=== PATIENT | female | born 1990 | race African-American/Black ===

== ENCOUNTER → 2017-02-25 | Outpatient (CLI) | payer OTHER ==
[~2017-02-25] MED LIST: CALNTAB; FERR325T PO; IBUP-232 PO; LABE100T2 PO; ONDA4TAB7 PO; PERI8.6T PO; SENN1TAB PO
[2017-02-25 12:59] LABS: AUTOMATED NEUTROPHIL # 4.8 TH/MM3 (1.8-7.7); BASOPHIL % 0.3 % (0.0-2.0); EOSINOPHIL # 0.1 TH/MM3 (0-0.4); EOSINOPHIL % 0.8 % (0.0-4.0); HEMATOCRIT 34.6 % (35.0-46.0); HEMO FLAGS DIFF FINAL; LYMPH % 30.5 % (9.0-44.0); LYMPHOCYTE # 2.5 TH/MM3 (1.0-4.8); MEAN CELL VOLUME 83.1 FL (80.0-100.0); MEAN CORPUSCULAR HEMOGLOBIN 27.7 PG (27.0-34.0); MEAN CORPUSCULAR HGB CONC 33.3 % (32.0-36.0); NEUT % 57.4 % (16.0-70.0); PLATELET COUNT 191 TH/MM3 (150-450); RED BLOOD COUNT 4.16 MIL/MM3 (4.00-5.30); RED CELL DISTRIBUTION WIDTH 14.5 % (11.6-17.2); WHITE BLOOD COUNT 8.3 TH/MM3 (4.0-11.0)
[2017-02-25 13:20] LABS: SICKLE CELL SCREEN NEG (NEG)
[2017-02-25 13:53] LABS: RUBELLA IGG ANTIBODY 18.4 IU/mL (10.0-500.0); RUBELLA STATUS IMMUNE (IMMUNE)
[2017-02-28 13:05] LABS: HEPATITIS B SURFACE ANTIBODY 0 mIU/mL
[2017-02-28 14:10] LABS: RAPID PLASMA REAGIN SCREEN NON-REACTIVE (NON-REACTVE)
== END ==
LOC: CLAB 11:05
PROVIDERS: ATTEND Family Medicine
DX: O09.30 Supervision of pregnancy with insufficient antenatal care, unspecified trimester (principal); Z83.2 Family history of diseases of the blood and blood-forming organs and certain disorders involving the immune mechanism
CPT/HCPCS: 36415; 82951; 83020; 84443; 85025; 85660; 86317; 86592; 86703; 86762; 86787; 86850; 86900; 86901; 87340

== ENCOUNTER → 2017-03-24 | Outpatient (CLI) | payer OTHER ==
[2017-03-24 17:38] LABS: URINE TOTAL PROTEIN TIMED 7.7 MG/DL
== END ==
LOC: CLAB 14:22
PROVIDERS: ATTEND Family Medicine
DX: R80.9 Proteinuria, unspecified (principal); R60.0 Localized edema
CPT/HCPCS: 84157

== ENCOUNTER 2017-03-29 14:13 | Inpatient (IN) | payer MEDICAID ==
[2017-03-29] VITALS (48 sets, daily range): BP systolic 122–164; BP diastolic 74–99; PULSE 68–114; RESP 18; TEMP 98.1–98.3
[~2017-03-29 14:13] MED LIST changes: -IBUP-232 PO; -LABE100T2 PO; -ONDA4TAB7 PO; -SENN1TAB PO
--- NOTE | 2017-03-29 14:52 | HHI.HP ---
HPI Chief Complaint IOL for low GRACE Date Seen: Mar 29, 2017 Time Seen: 14:51 Travel History International Travel<30 Days: No Contact w/Intl Traveler<30Days: No History of Present Illness HPI Patient is a 26 year old at 40 and 6/7 weeks by second-trimester US who presents for induction of labor due to oligohydramnios. OB care initially in [facility] beginning in July 2016, and was transferred to Dr. Heidy Malave upon arrival in [facility] at 30 weeks. She was seen in office 03/28/17 without complaint and exam showing no signs of labor. OB diagnostic US today revealed low GRACE of 6.2cm and MFM physician recommended induction of labor. Of note, patient wanted to go to 42 weeks with the , and NST was ordered for surveillance. She denies leakage of fluid, vaginal bleeding, and contractions. She feels baby moving regularly. She denies TUCKER/N/V/D/fever/sick contacts/SOB/calf pain/ dizziness/seeing spots. Para: 1 : 5 Last Menstrual Period: Jul 06, 2017 History Past Medical History Medical History: Denies Significant Hx Obstetric History Obstetric History G1: 2006 6 week elective G2: 2009 40 week of a male , 8 lbs. 3 oz. G3: 2011, 4 week elective G4: 2012, 4 week elective G5: current Family History Narrative Family History Mother with hypertension, arthritis Social History Alcohol Use: No Tobacco Use: No Substance Abuse: No Allergies-Medications (Allergen,Severity, Reaction): Coded Allergies: No Known Allergies (Unverified , 03/28/17) Home Meds Active Scripts Sennosides-Docusate Sodium (Evi-Colace)8.6-50 Mg Tab1 Tab PO DAILY PRN ( CONSTIPATION) #30 TAB Ref 0 Prov:Heidy Malave MD 03/01/17 Ferrous Sulfate 325 Mg [id number] Mg PO DAILY #30 TAB Ref 4 Prov:Heidy Malave MD 03/01/17 Reported Medications Vitamin (Calna)1 Tab Tab 02/17/17 Review of Systems Except as stated in HPI: all other systems reviewed are Neg Physical Exam Narrative GENERAL: Well-nourished, well-developed female. SKIN: Warm and dry. No rashes. HEAD: Normocephalic and atraumatic. EYES: No scleral icterus. No injection or drainage. ENT: No nasal drainage noted. Mucous membranes pink. Airway patent. NECK: Supple, trachea midline. No JVD. CARDIOVASCULAR: Regular rate and rhythm without murmurs, gallops, or rubs. RESPIRATORY: Breath sounds equal bilaterally. No accessory muscle use. ABDOMEN/GI: Abdomen soft, non-tender, bowel sounds present, no rebound, no guarding Gravid to approx 40 weeks size GENITOURINARY: External Genitalia: intact and normal in appearance Cervix: 1/30%/-2, soft Presentation: vertex Membranes: intact Uterine Contractions: intermittent contractions q 10-15min FHT's: Category: 1 Baseline: 135 Reactive: yes to 150 Variability: mod Decels: absent EXTREMITIES: No cyanosis or edema. BACK: Nontender without obvious deformity. No CVA tenderness. NEUROLOGICAL: Awake and alert. Motor and sensory grossly within normal limits. Five out of 5 muscle strength in all muscle groups. Normal speech. Data Data Vital Signs Reviewed: Yes (BP 139/83, pulse 82, respirations 18, temperature 98.4F) Assessment/Plan Problem List: (1) Post term over 40 weeks Assessment and Plan 26-year-old at 40 and 6/7 weeks with EDC 03/23 who presents for induction of labor due to oligohydramnios and postdates gestation 1. Intrauterine -at 40 and 6/7 week gestation -PNC with Dr. Heidy Malave ([facility] up to 30+weeks) -GBS negative -Continue routine care -Category 1 tracing -CTX intermittent at this time -Labor augmentation as indicated Patient discussed with Dr. Conrad, Dr. Malave Patient seen and discussed with Dr. Nguyen Discharge Planning Likely 1-2 days after vaginal delivery Norma Alexander MD R1 Mar 29, 2017 14:51
[2017-03-29] MEDS ORDERED: LACTATED RINGER'S 1000 ML INJ 1,000 ML IV PRN (15:01)
[2017-03-29] MEDS ORDERED: ONDANSETRON HCL 4 MG/2 ML VIAL IV PRN (15:15)
[2017-03-29] MEDS ORDERED: SODIUM CHLORID 0.9% 500 ML INJ 500 ML IV PRN (15:15)
[2017-03-29] MEDS ORDERED: CITRIC ACID-SODIUM CITRATE LIQ 30 ML UDC PO SCH (15:15)
[2017-03-29] MEDS ORDERED: LIDOCAINE HCL 1% 50 ML VIAL INFIL PRN (15:15)
[2017-03-29] MEDS ORDERED: MINERAL OIL 10 ML VIAL TOPICAL PRN (15:15)
[2017-03-29] MEDS ORDERED: LIDOCAINE HCL 1% 50 ML VIAL I-DERMAL PRN (15:15)
[2017-03-29] MEDS ORDERED: OXYTOCIN 30 UNITS-500ML PREMIX 500 ML IV ONE (15:15)
[2017-03-29] MEDS ORDERED: SODIUM CHLOR 0.9% 1000 ML INJ 1,000 ML IV PRN (15:21)
[2017-03-29 15:25] LABS: AUTOMATED NEUTROPHIL # 3.3 TH/MM3 (1.8-7.7); BASOPHIL % 0.4 % (0.0-2.0); EOSINOPHIL # 0.1 TH/MM3 (0-0.4); EOSINOPHIL % 0.9 % (0.0-4.0); HEMATOCRIT 34.4 % (35.0-46.0); LYMPH % 41.3 % (9.0-44.0); LYMPHOCYTE # 2.9 TH/MM3 (1.0-4.8); MEAN CELL VOLUME 83.3 FL (80.0-100.0); MEAN CORPUSCULAR HEMOGLOBIN 28.1 PG (27.0-34.0); MEAN CORPUSCULAR HGB CONC 33.7 % (32.0-36.0); MONO % 11.3 % (0.0-8.0); NEUT % 46.1 % (16.0-70.0); PLATELET COUNT 147 TH/MM3 (150-450); RED BLOOD COUNT 4.13 MIL/MM3 (4.00-5.30); RED CELL DISTRIBUTION WIDTH 16.8 % (11.6-17.2); WHITE BLOOD COUNT 7.1 TH/MM3 (4.0-11.0)
[2017-03-29 15:26] LABS: BLOOD, URINE NEG (NEG); GLUCOSE,URINE NEG (NEG); HEMO FLAGS DIFF FINAL; KETONE, URINE NEG (NEG); MUCUS URINE FEW /lpf (OCC); NITRITE,URINE NEG (NEG); PH, URINE 5.5 (5.0-8.5); SQUAMOUS EPITHELIAL CELL URINE 3 /hpf (0-5); URINE COLOR YELLOW (YELLW/STRAW)
[2017-03-29] MEDS ORDERED: DINOPROSTONE 10 MG VAG INSERT VAGINAL ONE (15:30)
[2017-03-29] MEDS ORDERED: SODIUM CHLORIDE 0.9% FLUSH 10 ML FLUSH IV FLUSH PRN (15:30)
[2017-03-29 15:32] LABS: COMMENT (UR) CULT NOT INDICATED; CULTURE IF INDICATED CULT NOT INDICATED
[2017-03-29] MEDS: LACTATED RINGER'S 1000 ML INJ 1,000 ML IV SCH ×2 (15:56→20:15)
--- NOTE | 2017-03-29 16:08 | HHI.HP ---
History & Physical H&P OB attending note She is 26-year-old black female now at 40 weeks 6 days referred from OB diagnostics for oligohydramnios. GRACE was 6, and the service recommended induction of labor. She has no complaints or problems. heart rate tracing is reactive and she is jessica irregularly. ob history significant for 3 early losses, Exam was done by the family medicine international freight forwarder and agree with the results Patient's borderline oligohydramnios at 40 weeks 6 days plan admission for labor induction after cervical ripening with Cervidil Chaim Conrad II, MD Mar 29, 2017 16:08
[2017-03-29] MEDS ORDERED: hydrOXYzine HCL 50 MG/ML VIAL IM ONE (17:15)
[2017-03-29] MEDS ORDERED: TERBUTALINE INJ 1 MG/ML AMP SQ PRN (17:15)
--- NOTE | 2017-03-29 19:12 | PD.LABORPN ---
Subjective Subjective CTXs q 2 min painful, FHR reactive cx 2-3 /60/-3 /vtx which is a change from admission. Plan to pull cervidil now and have her CTX on her own , and if the CTXs space out will begin pitocin and or AROM await cx change and vag delivery Objective Vital Signs Vital Signs Date Time Temp Pulse Resp B/P Pulse Ox O2 Delivery O2 Flow Rate FiO2 03/29/17 18:36 18 03/29/17 18:35 97 138/87 03/29/17 17:19 95 134/86 03/29/17 17:19 18 Objective Pelvic Exam: Cervix: [-] Dilatation: [-] Effacement: [-] Station: [-] Presentation: [-] Membranes: [intact or ruptured] Uterine Contractions: [-] FHT's: Category: [-] Baseline: [-] Reactive: [-] Variability: [-] Decels: [-] Assessment/Plan Problem List: (1) Post term over 40 weeks Chaim Conrad II, MD Mar 29, 2017 19:11
[2017-03-29] MEDS ORDERED: fentaNYL 2MCG-BUPIV 0.125% INJ 100 ML ONE (20:54)
[2017-03-29] MEDS ORDERED: SODIUM CHLORIDE 0.9% FLUSH 10 ML FLUSH IV FLUSH SCH (21:00)
[2017-03-29] MEDS ORDERED: ePHEDrine/NS 25 MG/5 ML SYR IV PRN (21:45)
[2017-03-29] MEDS ORDERED: DO NOT ADMINISTER ANTICOAGULANTS PRN (21:45)
[2017-03-29] MEDS ORDERED: NO SYSTEM NARCOTICS PRN (21:45)
[2017-03-29] MEDS ORDERED: fentaNYL 2MCG-BUPIV 0.125% 100 ML EPIDURAL SCH (21:45)
[2017-03-30] VITALS (62 sets, daily range): BP systolic 123–175; BP diastolic 76–107; PULSE 67–155; RESP 16–20; TEMP 98.2–98.9; O2SAT 99
[2017-03-30] MEDS: LACTATED RINGER'S 1000 ML INJ 1,000 ML IV SCH (03:28)
--- NOTE | 2017-03-30 03:29 | PD.LABORPN ---
Subjective Subjective Pt doing well but started feeling contractions on epidural. Pain level 3/10. Objective Vital Signs Vital Signs Date Time Temp Pulse Resp B/P Pulse Ox O2 Delivery O2 Flow Rate FiO2 03/30/17 03:21 98.2 03/30/17 03:15 74 03/30/17 03:00 84 124/83 03/30/17 03:00 81 03/30/17 02:46 86 141/88 03/30/17 02:45 99 18 03/30/17 02:40 89 03/30/17 02:35 93 03/30/17 02:30 84 141/92 03/30/17 02:30 87 03/30/17 02:15 97 03/30/17 02:15 97 136/92 03/30/17 02:13 18 03/30/17 02:00 94 123/87 03/30/17 02:00 96 03/30/17 01:55 93 03/30/17 01:50 101 03/30/17 01:45 95 126/90 03/30/17 01:45 105 03/30/17 01:30 89 125/91 03/30/17 01:30 104 03/30/17 01:15 92 123/94 03/30/17 01:15 102 03/30/17 01:15 18 03/30/17 01:14 92 134/92 03/30/17 01:10 94 03/30/17 01:05 104 03/30/17 01:00 86 03/30/17 01:00 90 136/97 03/30/17 00:45 96 135/89 03/30/17 00:45 94 03/30/17 00:31 67 142/76 03/30/17 00:30 75 18 03/30/17 00:25 76 03/30/17 00:20 73 03/30/17 00:15 76 141/83 03/30/17 00:15 80 03/30/17 00:10 77 03/30/17 00:05 73 03/30/17 00:00 80 136/82 03/30/17 00:00 80 03/29/17 23:55 81 03/29/17 23:50 77 03/29/17 23:45 79 03/29/17 23:45 80 130/78 03/29/17 23:40 76 03/29/17 23:35 78 03/29/17 23:31 76 128/81 03/29/17 23:30 75 03/29/17 23:16 78 136/86 03/29/17 23:15 81 03/29/17 23:08 98.3 18 03/29/17 23:05 72 03/29/17 23:01 72 145/80 03/29/17 23:00 69 03/29/17 22:50 72 03/29/17 22:46 68 140/84 03/29/17 22:45 70 03/29/17 22:40 71 03/29/17 22:35 73 03/29/17 22:30 74 03/29/17 22:30 78 134/77 03/29/17 22:25 75 03/29/17 22:20 72 03/29/17 22:15 71 135/81 03/29/17 22:15 72 03/29/17 22:10 75 03/29/17 22:05 73 03/29/17 22:01 71 146/84 03/29/17 22:00 75 03/29/17 21:46 80 137/94 03/29/17 21:45 77 03/29/17 21:41 18 03/29/17 21:40 83 03/29/17 21:35 79 03/29/17 21:30 90 142/88 03/29/17 21:30 79 03/29/17 21:25 81 03/29/17 21:20 79 03/29/17 21:15 88 133/74 03/29/17 21:11 99 122/77 03/29/17 21:10 100 03/29/17 21:06 76 142/80 03/29/17 21:05 77 03/29/17 21:00 107 03/29/17 21:00 114 164/99 03/29/17 20:56 105 137/77 03/29/17 20:55 97 03/29/17 20:54 92 150/96 Objective Pelvic Exam: Cervix: [-] Dilatation: [-] Effacement: [-] Station: [-] Presentation: [-] Membranes: [intact or ruptured] Uterine Contractions: [-] FHT's: Category: II Baseline: 125 Reactive: Yes, up to 145 Variability: Moderate Decels: variable Assessment/Plan Problem List: (1) Post term over 40 weeks Assessment and Plan 26 , GBS negative -Per nurse's vaginal exam: 6/70%/-2 -Doing well overall -Category II tracing -On epidural -Not ruptured -Continue routine antepartum care -Expect vaginal delivery JoseoLorena MD R1 Mar 30, 2017 03:29
[2017-03-30] MEDS ORDERED: BUPIVACAINE HCL PF 0.25% 10 ML VIAL ONE (05:53)
[2017-03-30] MEDS ORDERED: LIDOCAINE HCL 1.5% PF SOLN 20 ML AMP ONE (05:53)
[2017-03-30] MEDS ORDERED: OXYTOCIN 30 UNITS-500ML PREMIX 500 ML ONE (06:37)
--- NOTE | 2017-03-30 06:53 | PD.OB.DELI ---
Delivery Date: Mar 30, 2017 Anesthesia: Epidural Episiotomy: None Vaginal Delivery: Normal, Spontaneous Presentation: Occiput anterior Nuchal Cord: None Delayed cord clamping (45 sec): Yes : Female, Single One Minute : 7 Five Minute : 9 Weight: 9lb 0.3 oz Placenta: Spontaneous delivery, Intact, 3 vessel cord Laceration: Perineal laceration, 2 deg Repair: Chromic running Additional Information EBL 200 cc Delivery performed by Dr. Malave and Heidy Berger MD Mar 30, 2017 06:53
[2017-03-30] MEDS ORDERED: ZOLPIDEM TARTRATE 5 MG TAB PO PRN (07:00)
[2017-03-30] MEDS ORDERED: SODIUM CHLORIDE 0.9% FLUSH 10 ML FLUSH IV FLUSH PRN (07:00)
[2017-03-30] MEDS ORDERED: WITCH HAZEL 50%/GLYCERIN 12.5% 40 PAD JAR TOPICAL PRN (07:00)
[2017-03-30] MEDS ORDERED: ALUMINUM/MAGNESIUM/SIMETH 30 ML CUP PO PRN (07:00)
[2017-03-30] MEDS ORDERED: DOCUSATE SODIUM 50 MG/SENNA 8.6 MG TAB PO PRN (07:00)
[2017-03-30] MEDS ORDERED: ONDANSETRON ODT 4 MG TAB PO PRN (07:00)
[2017-03-30] MEDS ORDERED: BENZOCAINE 20% TOPICAL SPRAY 60 ML CAN TOPICAL PRN (07:00)
[2017-03-30] MEDS ORDERED: OXYTOCIN 10 UNIT/ML AMP IM ONE (07:00)
[2017-03-30] MEDS: IBUPROFEN 600 MG TAB PO PRN ×3 (08:20→21:50)
[2017-03-30] MEDS: ACETAMINOPHEN 325 MG TAB PO PRN ×2 (13:51→19:11)
[2017-03-30] MEDS ORDERED: MEASLES, MUMPS, RUBELLA VACCINE 0.5 ML VIAL SQ ONE (16:00)
[2017-03-30] MEDS ORDERED: DIPHTH/TETANUS/ACEL PERTUSSIS (BOOSTER) 0.5 ML VIAL/PFS IM ONE (16:00)
[2017-03-31] MEDS: IBUPROFEN 600 MG TAB PO PRN ×3 (03:49→17:57)
[2017-03-31] MEDS: ACETAMINOPHEN 325 MG TAB PO PRN ×3 (03:49→17:57)
[2017-03-31] MEDS: LACTATED RINGER'S 1000 ML INJ 1,000 ML IV SCH ×2 (07:01→15:01)
[2017-03-31 08:05] VITALS: BP 143/88; PULSE 68; RESP 20; TEMP 98.1
--- NOTE | 2017-03-31 08:21 | HHI.OB ---
Subjective Post Day: 1 Remarks day # 1. AFVSS overnight. Decreased lochia. Denies dysuria. No breast tenderness. She is feeding the baby via breast. Appetite good. No nausea or vomiting. Ambulating well. Denies calf pain or shortness of breath. Otherwise, she is doing well this morning and has no other concerns. (Norma Alexander MD R1) Objective Vitals/I&O Vital Signs Date Time Temp Pulse Resp B/P Pulse Ox O2 Delivery O2 Flow Rate FiO2 03/30/17 20:00 98.2 146/95 03/30/17 20:00 98.2 73 20 99 03/30/17 09:45 72 147/89 03/30/17 09:45 98.9 16 Objective Remarks GENERAL: Well-nourished, well-developed female in no apparent distress. CARDIOVASCULAR: Regular rate and rhythm without murmurs, gallops, or rubs. RESPIRATORY: Breath sounds equal bilaterally. No accessory muscle use. Lungs clear to auscultation bilaterally without crackles or wheezes. ABDOMEN/GI: Abdomen soft, non-tender. Normal bowel sounds. Fundus: Firm, non-tender at umbilicus. GENITOURINARY: Light to moderate bleeding. EXTREMITIES: No cyanosis or edema, non-tender, without signs of DVT. Medications and IVs Current Medications Medications (Trade) Dose Ordered Sig/Michelle Route Start Time Stop Time Status Last Admin Lactated Ringer's 1,000 ml @ 125 mls/hr Q8H IV 03/29/17 15:01 03/30/17 03:28 Lactated Ringer's 1,000 ml @ 3,000 mls/hr Q20M PRN IV 03/29/17 15:01 (NS 1000 ml Inj) 1,000 ml @ 100 mls/hr Q10H PRN IV 03/29/17 15:21 (fentaNYL INJ) 50 mcg Q1H PRN IV PUSH 03/29/17 15:15 (fentaNYL INJ) 100 mcg Q1H PRN IV PUSH 03/29/17 15:15 03/29/17 18:21 Mineral Oil 10 ml 10 ml UNSCH PRN TOPICAL 03/29/17 15:15 03/30/17 06:35 (fentaNYL 2MCG-BUPIV 0.125% INJ) 100 ml @ 0 mls/hr TITRATE EPIDURAL 03/29/17 21:45 03/30/17 03:29 (NS Flush) 2 ml BID IV FLUSH 03/30/17 09:00 (NS Flush) 2 ml UNSCH PRN IV FLUSH 03/30/17 07:00 (Tylenol) 650 mg Q4H PRN PO 03/30/17 07:00 03/31/17 08:00 (Motrin) 600 mg Q6H PRN PO 03/30/17 07:00 03/31/17 03:49 (Americaine 20% Top Spr) 1 spray Q4H PRN TOPICAL 03/30/17 07:00 03/30/17 19:12 (Tucks Pads) 1 applic QID PRN TOPICAL 03/30/17 07:00 03/30/17 19:12 (Evi-Colace) 2 tab Q12H PRN PO 03/30/17 07:00 (Ambien) 5 mg HS PRN PO 03/30/17 07:00 (Mag-Al Plus Susp Liq) 15 ml Q8H PRN PO 03/30/17 07:00 (Zofran Odt) 4 mg Q6H PRN PO 03/30/17 07:00 (Norma Alexander MD R1) Assessment/Plan Problem List: (1) Post term over 40 weeks Assessment and Plan 26 y/o female who is PPD# 1 s/p . Continuity patient of Dr. Malave. -Continue routine care. -Percocet and Motrin PRN pain. -Encouraged OOB. Advised pelvic rest for 6 wks. -Re: ctrl, she would like to think about it -Anticipate discharge tomorrow. Patient discussed with Dr. Ananda Guerrier Discharge Planning Likely discharge tomorrow to home (Norma Alexander MD R1) Attending Attestation Patient seen and examined. Agree with resident's assessment and plan. Will obtain CBC and CMP. Will get serial BPs. Close monitoring. (Radha Hutchins MD) Norma Alexander MD R1 Mar 31, 2017 08:21 Radha Hutchins MD Mar 31, 2017 09:32
[2017-03-31] MEDS: SODIUM CHLORIDE 0.9% FLUSH 10 ML FLUSH IV FLUSH SCH ×2 (09:00→21:00)
[2017-03-31] MEDS ORDERED: NIFEdipine 10 MG CAP PO PRN ×6 (09:30→16:00)
[2017-03-31 09:45] VITALS: BP 156/100; PULSE 70
[2017-03-31 10:00] VITALS: BP 154/98; PULSE 68
[2017-03-31 10:15] VITALS: BP 151/90; PULSE 76
[2017-03-31] MEDS ORDERED: LABETALOL HCL 100 MG/20 ML VIAL IV PUSH PRN ×2 (10:30→16:15)
[2017-03-31 10:53] LABS: AUTOMATED NEUTROPHIL # 4.1 TH/MM3 (1.8-7.7); BASOPHIL % 0.5 % (0.0-2.0); EOSINOPHIL # 0.1 TH/MM3 (0-0.4); EOSINOPHIL % 1.7 % (0.0-4.0); HEMO FLAGS DIFF FINAL; LYMPH % 40.1 % (9.0-44.0); LYMPHOCYTE # 3.4 TH/MM3 (1.0-4.8); MEAN CELL VOLUME 84.7 FL (80.0-100.0); MEAN CORPUSCULAR HEMOGLOBIN 28.1 PG (27.0-34.0); MEAN CORPUSCULAR HGB CONC 33.2 % (32.0-36.0); MONO % 9.8 % (0.0-8.0); NEUT % 47.9 % (16.0-70.0); PLATELET COUNT 131 TH/MM3 (150-450); RED BLOOD COUNT 3.65 MIL/MM3 (4.00-5.30); RED CELL DISTRIBUTION WIDTH 16.6 % (11.6-17.2); WHITE BLOOD COUNT 8.6 TH/MM3 (4.0-11.0)
[2017-03-31 11:08] LABS: ALT (GPT) 10 U/L (10-53); ANION GAP 7 MEQ/L (5-15); BICARBONATE 26.8 MEQ/L (21.0-32.0); BLOOD UREA NITROGEN 4 MG/DL (7-18); CHLORIDE 105 MEQ/L (98-107); GLOMERULAR FILTRATION RATE 142 ML/MIN (>89); POTASSIUM 3.5 MEQ/L (3.5-5.1); SODIUM (NA) 139 MEQ/L (136-145); URIC ACID 5.1 MG/DL (2.6-6.0)
[2017-03-31 11:12] LABS: ALKALINE PHOSPHATASE 85 U/L (45-117); AST (GOT) 19 U/L (15-37); TOTAL BILIRUBIN ADULT 0.3 MG/DL (0.2-1.0)
[2017-03-31 15:20] VITALS: BP 141/91; PULSE 72; RESP 18; TEMP 98.9
[2017-03-31 20:25] VITALS: BP 141/98; PULSE 66; RESP 18; TEMP 98
[2017-04-01] VITALS (8 sets, daily range): BP systolic 140–159; BP diastolic 81–99; PULSE 72–83; RESP 18–24; TEMP 98.2–99
[2017-04-01] MEDS: IBUPROFEN 600 MG TAB PO PRN (03:58)
[2017-04-01] MEDS: LACTATED RINGER'S 1000 ML INJ 1,000 ML IV SCH ×2 (07:01→15:01)
[2017-04-01] MEDS: SODIUM CHLORIDE 0.9% FLUSH 10 ML FLUSH IV FLUSH SCH (09:00)
--- NOTE | 2017-04-01 09:04 | HHI.OB ---
Subjective Post Day: 2 Remarks day # 2. Afebrile overnight. Blood pressures running 141-159/88-100 in past 24 hrs. Increased edema of feet and ankles. Denies headaches, blurry vision , chest pain or shortness of breath. Decreased lochia. Denies dysuria. Has some breast tenderness. She is feeding the baby via breast exclusively. has been assisting. Appetite good. No nausea or vomiting. Ambulating well. Denies calf pain or shortness of breath. Otherwise, she is doing well this morning and has no other concerns. (Heidy Malave MD) Objective Vitals/I&O Vital Signs Date Time Temp Pulse Resp B/P Pulse Ox O2 Delivery O2 Flow Rate FiO2 04/01/17 03:25 98.2 72 20 153/98 04/01/17 03:25 98.2 72 20 04/01/17 03:25 159/98 04/01/17 00:56 99.0 24 04/01/17 00:56 99.0 74 24 156/94 04/01/17 00:56 74 156/94 03/31/17 20:25 98.0 18 03/31/17 20:25 98.0 66 18 141/98 03/31/17 20:25 66 141/98 03/31/17 15:20 98.9 72 18 141/91 03/31/17 10:15 76 151/90 03/31/17 10:00 68 03/31/17 10:00 154/98 03/31/17 09:45 70 156/100 Objective Remarks GENERAL: Well-nourished, well-developed female in no apparent distress. CARDIOVASCULAR: Regular rate and rhythm without murmurs, gallops, or rubs. RESPIRATORY: Breath sounds equal bilaterally. No accessory muscle use. Lungs clear to auscultation bilaterally without crackles or wheezes. ABDOMEN/GI: Abdomen soft, non-tender. Normal bowel sounds. Fundus: Firm, non-tender at umbilicus. GENITOURINARY: Light to moderate bleeding. EXTREMITIES: No cyanosis.1-2+ edema of feet and ankles bilaterally. No calf swelling, calves are non-tender, without signs of DVT. Negative Homans sign. Medications and IVs Current Medications Medications (Trade) Dose Ordered Sig/Michelle Route Start Time Stop Time Status Last Admin Lactated Ringer's 1,000 ml @ 125 mls/hr Q8H IV 03/29/17 15:01 03/30/17 03:28 Lactated Ringer's 1,000 ml @ 3,000 mls/hr Q20M PRN IV 03/29/17 15:01 (NS 1000 ml Inj) 1,000 ml @ 100 mls/hr Q10H PRN IV 03/29/17 15:21 (fentaNYL INJ) 50 mcg Q1H PRN IV PUSH 03/29/17 15:15 (fentaNYL INJ) 100 mcg Q1H PRN IV PUSH 03/29/17 15:15 03/29/17 18:21 Mineral Oil 10 ml 10 ml UNSCH PRN TOPICAL 03/29/17 15:15 03/30/17 06:35 (fentaNYL 2MCG-BUPIV 0.125% INJ) 100 ml @ 0 mls/hr TITRATE EPIDURAL 03/29/17 21:45 03/30/17 03:29 (NS Flush) 2 ml BID IV FLUSH 03/30/17 09:00 (NS Flush) 2 ml UNSCH PRN IV FLUSH 03/30/17 07:00 (Tylenol) 650 mg Q4H PRN PO 03/30/17 07:00 03/31/17 17:57 (Motrin) 600 mg Q6H PRN PO 03/30/17 07:00 04/01/17 03:58 (Americaine 20% Top Spr) 1 spray Q4H PRN TOPICAL 03/30/17 07:00 03/30/17 19:12 (Tucks Pads) 1 applic QID PRN TOPICAL 03/30/17 07:00 03/30/17 19:12 (Evi-Colace) 2 tab Q12H PRN PO 03/30/17 07:00 (Ambien) 5 mg HS PRN PO 03/30/17 07:00 (Mag-Al Plus Susp Liq) 15 ml Q8H PRN PO 03/30/17 07:00 (Zofran Odt) 4 mg Q6H PRN PO 03/30/17 07:00 (Heidy Malave MD) Assessment/Plan Problem List: (1) Post term over 40 weeks (2) Elevated blood pressure reading without diagnosis of hypertension (3) Decreased platelet count (4) Vaginal delivery Assessment and Plan 26 y/o female who is PPD# 2 s/p 1) S/P -Continue routine care -Motrin PRN pain -Encouraged OOB -Advised pelvic rest for 6 wks. -Re: ctrl, she does not want anything for now, stating she is going to be abstinent 2) Elevated Blood pressures ranging 141-159/88-100 over past 24 hrs -CBC with platelets of 131 on 03/31/17 (down from 147 03/29/17 and 191 02/25/17). Hgb 10.3 (has had anemia and is on iron). CMP creatinine 0.61, BUN 4, AST/ALT . -24hr urine protein on 03/24/17 was normal at 92 -UA from 03/31/17 with trace protein -Goal BP is <155 systolic and <105 diastolic -Start Labetalol 100mg PO BID, first dose now -Will recheck BP this afternoon and if <155/105 okay for d/c home and follow up with me in clinic on Tuesday04/04/17 at 10:30am, already scheduled. -Advised patient is she develops headaches, blurry vision, nausea or vomiting, or abdominal pain to call our clinic or if over the weekend to go to the ER. She voices understanding. 3) Decreased platelet count -CBC ordered for Tuesday04/04/17 Disposition: Possible discharge later today pending improvement of blood pressure after starting Labetalol Seen and discussed with Dr. Vaughan Discharge Planning (Heidy Malave MD) Attending Attestation Patient seen, examined, and discussed with Dr. Malave and OB resident team. I agree with assessment and management as documented and discussed with me. Pt reports swelling in feet. No headache, no vision changes, no abdominal pain. BP elevated to >155/105 at times. Initiate labetalol. Discharge home today, once/if BP stabilizes. Pt has appt on Tuesday and has CBC ordered for that day (to follow up mild thrombocytopenia). (Rosina Vaughan MD) Heidy Malave MD Apr 01, 2017 09:04 Rosina Vaughan MD Apr 04, 2017 14:26
[2017-04-01] MEDS ORDERED: LABETALOL HCL 100 MG TAB PO SCH (09:15)
[2017-04-01] MEDS ORDERED: IBUP-232 PO (09:45)
[2017-04-01] MEDS ORDERED: LABE100T2 PO (09:45)
[2017-04-01] MEDS ORDERED: SENN1TAB PO (09:45)
[2017-04-01] MEDS ORDERED: ONDA4TAB7 PO (09:45)
--- NOTE | 2017-04-01 09:46 | HHI.DCPOC ---
Discharge Care Plan Diagnosis: (1) Post term over 40 weeks (2) Elevated blood pressure reading without diagnosis of hypertension (3) Vaginal delivery Report Symptoms to Your Doctor -Temperature above 100.5 degrees -Redness, of incision or excessive or foul smelling drainage -Unusual pain or calf pain -Increased vaginal bleeding -Painful or difficulty urinating -Feelings of extreme sadness or anxiety after 2 weeks Goals to Promote Your Health * To prevent worsening of your condition and complications * To maintain your health at the optimal level Directions to Meet Your Goals Take your medications as prescribed Follow your dietary instruction Follow activity as directed Ensure plenty of rest for recovery Drink fluids for hydration Keep your appointments as scheduled Take your immunizations and boosters as scheduled If your symptoms worsen call your PCP, if no PCP go to Urgent Care Center or Emergency Room Smoking is Dangerous to Your Health. Avoid second hand smoke Call the 24-hour crisis hotline for domestic abuse at Heidy Malave MD Apr 01, 2017 09:46
[2017-04-01] MEDS: ACETAMINOPHEN 325 MG TAB PO PRN (15:43)
== END 2017-04-01 18:20 | disposition home or self-care (01) | DRG 774 ==
LOC: H2EB 14:13 → H1EA 03-30 09:32
PROVIDERS: ADMIT Obstetrics & Gynecology Maternal & Fetal Medicine; ATTEND Obstetrics & Gynecology Maternal & Fetal Medicine
PROC: 3E0P7GC Introduction of Other Therapeutic Substance into Female Reproductive, Via Natural or Artificial Opening (ICD-10-PCS; 2017-03-29)
PROC: 3E0S3CZ (ICD-10-PCS; 2017-03-29)
PROC: 00HU33Z Insertion of Infusion Device into Spinal Canal, Percutaneous Approach (ICD-10-PCS; 2017-03-29)
PROC: 10E0XZZ Delivery of Products of Conception, External Approach (ICD-10-PCS; principal; 2017-03-30)
PROC: 0KQM0ZZ Repair Perineum Muscle, Open Approach (ICD-10-PCS; 2017-03-30)
DX: O41.03X0 Oligohydramnios, third trimester, not applicable or unspecified (principal); O90.89 Other complications of the puerperium, not elsewhere classified; R03.0 Elevated blood-pressure reading, without diagnosis of hypertension; O72.3 Postpartum coagulation defects; D69.6 Thrombocytopenia, unspecified; O48.0 Post-term pregnancy; O70.1 Second degree perineal laceration during delivery; Z37.0 Single live birth; Z3A.40 40 weeks gestation of pregnancy
CPT/HCPCS: 80053; 81001; 84550; 85025; 86850; 86900; 86901; 90715; J2590; J3010; J3105; J3410; J7120